=== PATIENT | female | born 1985 | race Caucasian/White ===

== ENCOUNTER 2022-03-29 09:53 | Emergency (ER) | payer BC ==
[~2022-03-29] VITALS: Ht 165.1 cm; Wt 44.9 kg
[~2022-03-29 09:53] MED LIST: CYMBALTA20 MG PO; ULTRACET TABLE1 EACH PO
[2022-03-29] MEDS ORDERED: METHOCARBAMOL500 MG PO (10:11)
== END 2022-03-29 10:25 | disposition home or self-care (01) ==
LOC: ER 10:01
DX: M54.50 Low back pain, unspecified (principal); M79.10 Myalgia, unspecified site; V43.52XA Car driver injured in collision with other type car in traffic accident, initial encounter; Y92.488 Other paved roadways as the place of occurrence of the external cause; E03.9 Hypothyroidism, unspecified; D64.9 Anemia, unspecified; F41.9 Anxiety disorder, unspecified; D70.9 Neutropenia, unspecified
CPT/HCPCS: 99282